=== PATIENT | male | born 1975 | race African-American/Black ===

== ENCOUNTER 2018-04-30 08:04 | Emergency (ER) | payer SELFPAY ==
[~2018-04-30] VITALS: Ht 180.3 cm; Wt 105.0 kg
[2018-04-30] MEDS ORDERED: IBUPROFEN 600MG TABLET PO STA (08:52)
[2018-04-30] MEDS ORDERED: SODIUM CHLORIDE 0.9% 1,000 ML IV ONE ×2 (08:52→12:22)
[2018-04-30] MEDS ORDERED: ACETAMINOPHEN 325MG TABLET PO STA (08:52)
[2018-04-30] MEDS ORDERED: DEXAMETHASONE 10 MG/ML VIAL IV ONE (09:00)
[2018-04-30 09:32] LABS: BASOPHILS % 0.1 % (0.0-2.0); HEMATOCRIT. 39.3 % (42.0-52.0); HEMOGLOBIN. 12.8 g/dL (14.0-18.0); LYMPHOCYTES % 12.9 % (20.0-50.0); MEAN CORPUSCULAR HEMOGLOBIN 26.6 pg (28.0-32.0); MEAN CORPUSCULAR VOLUME 81.8 fL (80.0-94.0); MEAN PLATELET VOLUME 7.1 fl (7.4-10.4); MONOCYTES % 8.7 % (2.0-8.0); NEUTROPHILS % 78.3 % (40.0-76.0); PLATELET 253 x1000/uL (130-400); RED CELL DISTRIBUTION WIDTH 14.8 % (11.6-14.6)
[2018-04-30 09:37] LABS: CHLORIDE 101 mEq/L (98-107)
[2018-04-30 09:38] LABS: INR 1.1; PROTHROMBIN TIME 11.7 sec (9.4-11.6)
[2018-04-30 11:59] LABS: CLARITY URINE CLEAR (CLEAR); COLOR URINE YELLOW (YELLOW); KETONES URINE 1+ (NEGATIVE); LEUKOCYTE ESTERASE URINE NEGATIVE (NEGATIVE); NITRITE URINE NEGATIVE (NEGATIVE); OCCULT BLOOD URINE NEGATIVE (NEGATIVE); PROTEIN URINE 2+ (NEGATIVE); SPECIFIC GRAVITY URINE 1.026 (1.005-1.030)
[2018-04-30] MEDS ORDERED: CEFTRIAXONE 1 G PREMIX 50 ML IV ONE (12:30)
[2018-04-30 13:33] VITALS: BP 123/76
== END 2018-04-30 13:32 | disposition home or self-care (01) ==
LOC: ER 08:04
DX: J03.90 Acute tonsillitis, unspecified (principal); K92.0 Hematemesis; R51 Headache; R50.9 Fever, unspecified; M54.9 Dorsalgia, unspecified; M54.2 Cervicalgia
CPT/HCPCS: 36415; 80053; 81003; 85025; 85610; 96361; 96365; 96375; 99284; J0696; J1100; J7030; Z7610